=== PATIENT | male | born 1975 | race Caucasian/White ===

== ENCOUNTER 2024-08-30 14:52 | Outpatient (AMB) | payer OTHER, SELFPAY ==
--- NOTE | 2024-08-30 14:56 | A.OFFVIS_ITS ---
Intake Visit Reasons: history of epididymitis Intake Note: New patient presents today for initial visit for hx of epididymitis Urology Medication:None Blood Thinner:None Antibiotic Allergies:NKDA Allergies No Known Drug Allergies Allergy (Verified 08/30/24 14:42) Unknown Medication List - Last Reconciled 08/30/24 by Kimmie Hull MD hydrocortisone 5 mg PO TID thyroid (pork) (Danese Thyroid) 60 mg PO DAILY PFSH Medical History Other prison (current) drug therapy Irritable bowel syndrome without diarrhea Hypothyroidism Fatigue Dysthymic disorder Celiac disease Anxiety disorder Abnormal results of liver function studies Results AMB Urinalysis, Automated UA Leukoctes 0 Jerry/uL Last Edit by Kristina Fu on 08/30/24 16:49 UA Nitrite Negative Last Edit by Kristina Fu on 08/30/24 16:49 UA Urobilinogen 17 mg/dL Last Edit by Kristina Fu on 08/30/24 16:49 UA Protein 1 mg/dL Last Edit by Kristina Fu on 08/30/24 16:49 UA pH 7.0 Last Edit by Kristina Fu on 08/30/24 16:49 UA Blood 0 Dorian/uL Last Edit by Kristina Fu on 08/30/24 16:49 UA Specific [place] 1.010 Last Edit by Kristina Fu on 08/30/24 16:49 UA Ketone Negative Last Edit by Kristina Fu on 08/30/24 16:49 UA Bilirubin 0 mg/dL Last Edit by Kristina Fu on 08/30/24 16:49 UA Glucose 0 mg/dL Last Edit by Kristina Fu on 08/30/24 16:49 Assessment & Plan Assessment & Plan (1) Abnormal laboratory test result: Code(s): R89.9 - Unspecified abnormal finding in specimens from other organs, systems and tissues Category: Medical (2) Atrophy, testis: Code(s): 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 - Atrophy of testis Category: Medical Orders: Orders Testosterone, Free/Total Today R89.9 - Unspecified abnormal finding in specimens from other organs, systems and tissues Prolactin Today R89.9 - Unspecified abnormal finding in specimens from other organs, systems and tissues Glucose Fasting Today R89.9 - Unspecified abnormal finding in specimens from other organs, systems and tissues US scrotum doppler Today N50.0 - Atrophy of testis AMB Urinalysis Automated Today R89.9 - Unspecified abnormal finding in specimens from other organs, systems and tissues, Z13.9 - Encounter for screening, unspecified PSA,Total (Free>4and<10) Today R89.9 - Unspecified abnormal finding in specimens from other organs, systems and tissues Lutenizing Hormone Today R89.9 - Unspecified abnormal finding in specimens from other organs, systems and tissues Follicle Stimulating Hormone Today R89.9 - Unspecified abnormal finding in specimens from other organs, systems and tissues Sex Hormone Binding Globulin Today R89.9 - Unspecified abnormal finding in specimens from other organs, systems and tissues Estradiol Ultra Sensitive Today R89.9 - Unspecified abnormal finding in specimens from other organs, systems and tissues Medications: New thyroid (pork) (Danese Thyroid) 60 mg PO DAILY 60 tabs 0RF Coding Diagnoses Abnormal laboratory test result R89.9 Atrophy, testis N50.0
== END 2024-08-30 15:47 | disposition home or self-care (01) ==
LOC: HO.HUSH 14:53
PROVIDERS: Visit Provider Urology
DX: Z13.9 Encounter for screening, unspecified (principal); R89.9 Unspecified abnormal finding in specimens from other organs, systems and tissues

== ENCOUNTER → 2024-08-30 14:52 | Outpatient (BNVA) | payer OTHER, SELFPAY | PROVIDERS: Visit Provider Urology | DX: N50.0 Atrophy of testis (principal); R89.9 Unspecified abnormal finding in specimens from other organs, systems and tissues | CPT/HCPCS: 81003 ==

== ENCOUNTER 2024-10-31 15:47 | Outpatient (REF) | payer OTHER, SELFPAY ==
--- NOTE | ~2024-10-31 | US_ITS ---
EXAMINATION: US SCROTUM WITH DOPPLER COMPLETE HISTORY: N50.0 - Atrophy of testis. COMPARISON: There are no prior studies available for comparison. FINDINGS: Real-time grayscale ultrasound imaging of the scrotum was performed. Color and spectral Doppler analysis was also performed. RIGHT TESTICLE: The right testis measures 3.7 x 2.0 x 2.6 cm and demonstrates normal homogeneous echotexture. No masses are seen. The right testis demonstrates normal arterial and venous color Doppler and spectral waveforms. RIGHT EPIDIDYMIS: Normal in size, shape, and vascularity. LEFT TESTICLE: The left testis measures 1.4 x 0.6 x 1.1 cm and is hypoechoic demonstrating calcifications. No masses are seen. The left testis demonstrates decreased color Doppler flow compared to the right which is likely related to atrophy, but normal arterial and venous spectral waveforms. LEFT EPIDIDYMIS: The left epididymis is not identified. VARICOCELE: None. HYDROCELE: No significant hydrocele is seen. OTHER COMMENTS: None. US/US scrotum doppler IMPRESSION: Atrophic left testis. Electronically signed by: Arcadio Richardson MD 11/01/2024 07:07 AM EDT
--- OUTSIDE RECORDS SUMMARY | 2024-10-31 18:32 | XMS_ITS | Clinical Summary ---
Author Organization [facility] Address [address] [place] [id number] Phone Care Team Providers Care Fast Food Attendant Name Role Phone Pcp, Unknown Primary Care Provider Unavailabl e Social History Tobacco Use Types Packs/Day Years Used Date Smoking Tobacco: Never Assessed Education Answer Date Recorded Are you interested in more education? Not on yessi e 12/15/2023 Are you concerned about learning? Not on file 12/15/2023 No 12/15/2023 No 12/15/2023 Digital Access Answer Date Recorded No 12/15/2023 No 12/15/2023 Reliable internet access at home? Not on file 12/15/2023 Device with a working camera? Not on file Sex and Gender Information Value Date Recorded Sex Assigned at Not on file Legal Sex Male 4:20 PM EDT Gender Identity Not on file Sexual Orientation Not on file Plan of Treatment Upcoming Encounters Date Type Department Care Team (Late st Contact Info) Description 02/22/2025 10:30 AM EST Office Visit [facility] Medicine [address] [place] [address] Ney Uribe, MAULIK [address] [place] [address] Health Maintenance Due Date Last Done Comments Adult Td,Tdap Booster 1973 LIPID PANEL 1973 DEPRESSION SCREENING 1985 SMOKING Hx and SMOKELESS TOB ACCO SCREENING 1986 HEPATITIS C SCREENING 09/04/1991 HIV ONE-TIME SCREENING (18-6 5 YEARS) 09/04/1991 COLOGUARD 2018 COLONOSCOPY 2018 COLORECTAL CANCER SCREENING 2018 FIT TEST 2018 FOBT 2018 SIGMOIDOSCOPY 2018 VIRTUAL COLONOSCOPY 2018 PNEUMOCOCCAL VACCINES (50+ y ears) (1 of 1 - PCV) 09/04/2023 ZOSTER VACCINES (1 of 2) 09/04/2023 INFLUENZA VACCINE (#1) 2024 COVID-19 VACCINE (1 - 2023-2 5 season) 2024 HEPATITIS A VACCINES Aged Out No long er eligible based on patient's age to complete this topic HIB VACCINES Aged Out No longer eligi ble based on patient's age to complete this topic MENINGOCOCCAL VACCINES (ACWY) Aged Out No longer eligible based on patient's age to complete this topic MENINGOCOCCAL VACCINES (B) Aged Out N o longer eligible based on patient's age to complete this topic Medical Devices Not on file Insurance O O [facility] HMO Care Teams Fast Food Attendant Relationship Specialty Start Date End Date Pcp, Unknown PCP - General Cardiology 12/14/23 Additional Source Comments The information contained in this document represents components of the legal health record. It is not the complete legal health record.[facility]
== END 2024-10-31 15:48 | disposition home or self-care (01) ==
LOC: HO.US 15:47
PROVIDERS: PCP Family Medicine; Visit Provider Urology
DX: N50.0 Atrophy of testis (principal)
CPT/HCPCS: 93975

== ENCOUNTER → 2024-10-31 15:49 | Outpatient (BNV) | payer OTHER, SELFPAY | PROVIDERS: PCP Family Medicine; Visit Provider Radiology Diagnostic Radiology | DX: N45.1 Epididymitis (principal) | CPT/HCPCS: 93975 ==

== ENCOUNTER 2024-11-30 15:48 | Outpatient (AMB) | payer OTHER, SELFPAY ==
--- NOTE | 2024-11-30 15:48 | MHC.OFFVIS ---
Intake Visit Reasons: 10w/US/Labs Intake Note: FU labs, US results Urology Medication:None Blood Thinner:None Antibiotic Allergies:NKDA Allergies No Known Drug Allergies Allergy (Verified 11/30/24 15:49) Unknown HPI Comments Details: 11/30/24-- History of Present Illness The patient is a 49-year-old male presenting for a review of laboratory results. The patient has an elevated follicle-stimulating hormone (FSH) level. Testosterone levels are normal. The patient is already followed by associate programmer analyst. The patient has an atrophic left testicle, which was confirmed by a recent ultrasound. The right testicle is normal, and there are no worrisome findings associated with the atrophic left testicle. The patient recalls an infection and swelling in the left testicle approximately 20 years ago, which may have contributed to its current state. Results - Labs: Total testosterone 725 ng/dL, PSA 0.44 ng/mL, elevated FSH - Imagin10/31/24--Scrotal ultrasound shows atrophic left testicle, normal right testicle Plan 1. Elevated Follicle-Stimulating Hormone (Fsh) - Continue fu with associate programmer analyst for further evaluation of elevated FSH levels. No other recommendations 2. Atrophic Left Testicle - No immediate intervention required. Right testicle is normal. Testosterone levels normal. 08/30/24 History of Present Illness - The patient is a 48-year-old male presenting for a new patient visit to the urology office. - History of epididymitis 22 years ago following a kidney infection while living abroad in [place], treated with antibiotics. - Exposure to toxic mold in a home, leading to elevated mycotoxins, currently under treatment with charcoal capsules. - Diagnosed with Lyme disease, managed with natural treatments including magnesium citrate, magnesium torate, and LB Core herbal combination. Results - Labs: UA - Leuk-neg, blood-neg Plan - Check Labs - Order an ultrasound of the testicles to evaluate the condition of the left testicle further. - Follow-up Telehealth to review lab and ultrasound results. [facility] Medical History Other shelter (current) drug therapy Irritable bowel syndrome without diarrhea Hypothyroidism Fatigue Dysthymic disorder Celiac disease Anxiety disorder Abnormal results of liver function studies Review of Systems Const All systems reviewed & are unremarkable except as noted in HPI and below Reports no additional complaints Eyes Reports no additional complaints ENT Reports no additional complaints Card Reports no additional complaints Resp Reports no additional complaints GI Reports no additional complaints Reports as per HPI Musc Reports no additional complaints Skin/Breast Reports system reviewed and no additional complaints, except as documented Neuro Reports no additional complaints Psych Reports no additional complaints Endo Reports no additional complaints Delroy/Lymph Reports no additional complaints Aller/Immun Reports no additional complaints Telehealth Telehealth Telehealth Platform: [employer] Location of provider rendering services: practice address Location of patient: address on file Patient Identification confirmed using: Name, : Yes Telehealth method: video Patient verbally consented to treatment: Yes Patient verbally consented to billing insurance company: Yes Patient informed of any privacy concerns related to visit: Yes Results Reviewed Results Reviewed: Date of Service: 10/31/24 Reason for Exam: N50.0 - Atrophy of testis EXAMINATION: US SCROTUM WITH DOPPLER COMPLETE HISTORY: N50.0 - Atrophy of testis. COMPARISON: There are no prior studies available for comparison. FINDINGS: Real-time grayscale ultrasound imaging of the scrotum was performed. Color and spectral Doppler analysis was also performed. RIGHT TESTICLE: The right testis measures 3.7 x 2.0 x 2.6 cm and demonstrates normal homogeneous echotexture. No masses are seen. The right testis demonstrates normal arterial and venous color Doppler and spectral waveforms. RIGHT EPIDIDYMIS: Normal in size, shape, and vascularity. LEFT TESTICLE: The left testis measures 1.4 x 0.6 x 1.1 cm and is hypoechoic demonstrating calcifications. No masses are seen. The left testis demonstrates decreased color Doppler flow compared to the right which is likely related to atrophy, but normal arterial and venous spectral waveforms. LEFT EPIDIDYMIS: The left epididymis is not identified. VARICOCELE: None. HYDROCELE: No significant hydrocele is seen. OTHER COMMENTS: None. IMPRESSION: Atrophic left testis. Assessment & Plan Assessment & Plan (1) Abnormal laboratory test result: Comment: Elevated FSH Code(s): R89.9 - Unspecified abnormal finding in specimens from other organs, systems and tissues Category: Medical (2) Atrophy, testis: Comment: 10/31/24-US scrotum- IMPRESSION: Atrophic left testis. Code(s): N50.0 - Atrophy of testis Category: Medical Plan Plan 1. Elevated Follicle-Stimulating Hormone (Fsh) - Continue fu with associate programmer analyst for further evaluation of elevated FSH levels. No other recommendations 2. Atrophic Left Testicle - No immediate intervention required. Right testicle is normal. Testosterone levels normal. Patient Instructions: The patient had an opportunity to ask questions regarding treatment plan. The patient expressed understanding and agreement with the above treatment plan. The patient is aware they should contact our office by phone for worsening of their current condition or the appearance of new symptoms. Compliance is encouraged with any medications and followup testing that is ordered. It is a privilege to be allowed the opportunity to participate in the urologic care of your patient. If you have any questions or concerns regarding treatment for the above conditions please do not hesitate to contact me. The office telephone contact is [phone]. This note is constructed in part using voice recognition software. While every effort has been made to ensure accuracy jr. systems administrator errors may have been included. Yours sincerely, Kimmie Hull MD Scribe Plan - Not visible on output: Patient was informed and verbally consented to the use of an ambient scribe for clinic note documentation during this visit. Coding Level of Care Code Tele Est Pt Level 4 (66550) Diagnoses Abnormal laboratory test result R89.9 Atrophy, testis N50.0
== END 2024-11-30 16:30 | disposition home or self-care (01) ==
LOC: HO.HUSH 15:48
PROVIDERS: PCP Family Medicine; Visit Provider Urology
DX: R89.9 Unspecified abnormal finding in specimens from other organs, systems and tissues (principal); N50.0 Atrophy of testis
CPT/HCPCS: 99214